=== PATIENT | female | born 1990 | race Caucasian/White ===

== ENCOUNTER 2023-06-18 11:08 | Inpatient (IN) | payer OTHER ==
[2023-06-18] VITALS (12 sets, daily range): BP systolic 88–142; BP diastolic 53–72
[~2023-06-18] VITALS: Ht 160 cm; Wt 111.4 kg
[2023-06-18] MEDS ORDERED: ASPI81CH33 PO (11:36)
[2023-06-18] MEDS ORDERED: PRENTAB9 PO (11:36)
[2023-06-18] MEDS ORDERED: HOME MED LIST COMPLETE! XX SCH (11:40)
[2023-06-18 12:21] LABS: HEMATOCRIT 35.9 % (36.0-47.0); HEMOGLOBIN 11.9 g/dl (12.0-15.5); MEAN CORPUSCULAR HEMOGLOBIN 27.3 pg (27.0-33.0); MEAN CORPUSCULAR HGB CONC 33.1 g/dl (32.0-36.5); MEAN CORPUSCULAR VOLUME 82.3 fl (80.0-96.0); PLATELET COUNT, AUTOMATED 296 10^3/uL (150-450); RED BLOOD COUNT 4.36 10^6/uL (4.00-5.40); WHITE BLOOD COUNT 9.7 10^3/uL (4.0-10.0)
[2023-06-18] MEDS ORDERED: TRANEXAMIC ACID INJection 1,000 MG in NS 100 ML IV PRN (14:05)
[2023-06-18] MEDS ORDERED: METHYLERGONOVINE MALEATE 0.2MG/ML 1ML VIAL IM PRN (14:05)
[2023-06-18] MEDS ORDERED: OXYTOCIN DRIP 30 UNITS in IV 1 EA IV PRN (14:05)
[2023-06-18] MEDS ORDERED: LIDOCAINE 1% MDV 20ML VIAL INFIL PRN (14:05)
[2023-06-18] MEDS: miSOPROStol 50MCG 1/2 TABLET PO SCH (14:32)
[2023-06-18] MEDS: LR 1,000 ML IV SCH (18:16)
[2023-06-19] VITALS (30 sets, daily range): BP systolic 86–153; BP diastolic 50–76; O2SAT 95–98
[2023-06-19] MEDS: PENICILLIN G POTASSIUM 5 MU IV 5 MU in D5W MINI-BAG PLUS 100 ML IV STA (00:11)
[2023-06-19] MEDS: OXYTOCIN DRIP 30 UNITS in IV 1 EA IV SCH (00:11)
[2023-06-19] MEDS ORDERED: LR 500 ML IV PRN (01:20)
[2023-06-19] MEDS ORDERED: ONDANSETRON 4MG 2ML VIAL IV PRN (01:20)
[2023-06-19] MEDS ORDERED: ePHEDrine SULFATE 25 MG/5 ML(5MG/ML) SYRINGE IVP PRN (01:20)
[2023-06-19] MEDS ORDERED: NALOXONE INJ 0.4MG/1ML VIAL IV PRN (01:20)
[2023-06-19] MEDS ORDERED: EPIDURAL/PCA KEYS XX PRN (01:20)
[2023-06-19] MEDS ORDERED: diphenhydrAMINE 50MG/ML VIAL IV PRN (01:20)
[2023-06-19] MEDS: FENTANYL/ROPIVACAINE/NACL BAG 100 ML EPIDURAL SCH (01:36)
[2023-06-19] MEDS: PEN G POT 3,000,000 UNIT/50 ML 3,000,000 UNIT in IV 1 EA IV SCH (04:07)
[2023-06-19] MEDS ORDERED: IBUPROFEN 600MG TAB PO PRN (07:40)
[2023-06-19] MEDS ORDERED: LR 1,000 ML IV SCH (07:40)
[2023-06-19] MEDS ORDERED: METOCLOPRAMIDE INJ 10MG/2ML VIAL IV PRN (07:40)
[2023-06-19] MEDS ORDERED: DOCUSATE SODIUM 100MG CAPSULE PO PRN (07:40)
[2023-06-19] MEDS ORDERED: MOM 30ML SUSPENSION UDC PO PRN (07:40)
[2023-06-19] MEDS ORDERED: RHOGAM 300MCG (1500IU) INJ IM SCH (07:40)
[2023-06-19] MEDS ORDERED: IBUPROFEN 800 MG TAB PO PRN (07:40)
[2023-06-19] MEDS ORDERED: OXYTOCIN DRIP 30 UNITS in IV 1 EA IV SCH (07:40)
[2023-06-19] MEDS ORDERED: DIBUCAINE 1% OINTMENT 30GM TOP PRN (07:40)
[2023-06-19] MEDS ORDERED: METHYLERGONOVINE MALEATE 0.2 MG TAB PO PRN (07:40)
[2023-06-19] MEDS ORDERED: ACETAMINOPHEN TAB 650MG DOSE (2X325MG) PO PRN (07:40)
[2023-06-19] MEDS ORDERED: PRENATAL VITAMINS CHEWABLE TABLET PO SCH (09:00)
[2023-06-19] MEDS: PRENATAL VITAMINS CHEWABLE TABLET PO SCH (09:00)
[2023-06-20 06:00] VITALS: BP 109/54; O2SAT 100
[2023-06-20] MEDS: ACETAMINOPHEN 500 MG TAB PO PRN (12:10)
[2023-06-20 18:00] VITALS: BP 116/68; O2SAT 95
[2023-06-21 05:54] VITALS: BP 125/83; O2SAT 98
[2023-06-21] MEDS: INFLUENZA QUADRIVALENT PF VACCINE 0.5ML SYRINGE IM.IMMUN ONE (08:57)
[2023-06-21] MEDS: MEASLES,MUMPS,RUBELLA VACCINE INJ (MMR-II) SC.IMMUN ONE (13:15)
== END 2023-06-21 14:20 | disposition home or self-care (01) | DRG 807 ==
LOC: M LDI 11:08 → M OBS 06-19 09:16
PROVIDERS: ADMIT Obstetrics & Gynecology; ATTEND Obstetrics & Gynecology
PROC: 3E0P7GC Introduction of Other Therapeutic Substance into Female Reproductive, Via Natural or Artificial Opening (ICD-10-PCS; 2023-06-18)
PROC: 10E0XZZ Delivery of Products of Conception, External Approach (ICD-10-PCS; principal; 2023-06-19)
DX: O35.8XX0 Maternal care for other (suspected) fetal abnormality and damage, not applicable or unspecified (principal); Z37.0 Single live birth; Z3A.39 39 weeks gestation of pregnancy; O69.81X0 Labor and delivery complicated by cord around neck, without compression, not applicable or unspecified; O99.824 Streptococcus B carrier state complicating childbirth; O77.0 Labor and delivery complicated by meconium in amniotic fluid

== ENCOUNTER 2024-05-21 04:27 | Inpatient (IN) | payer OTHER ==
[~2024-05-21] VITALS: Ht 157.5 cm; Wt 102.7 kg
[2024-05-21] VITALS (14 sets, daily range): BP systolic 108–163; BP diastolic 55–69; TEMP 97.1–98.1; O2SAT 96–99
[~2024-05-21 04:27] MED LIST: ASPI81CH33 PO; PRENTAB9 PO
[2024-05-21] MEDS ORDERED: HOME MED LIST COMPLETE! XX SCH (04:35)
[2024-05-21] MEDS ORDERED: OXYTOCIN INJ 10UNITS/ML 1ML VIAL IM PRN (05:15)
[2024-05-21] MEDS ORDERED: CARBOPROST TROMETHAMINE 250 MCG/ML AMP IM PRN (05:15)
[2024-05-21] MEDS ORDERED: LIDOCAINE 1% MDV 20ML VIAL INFIL PRN (05:15)
[2024-05-21] MEDS ORDERED: METHYLERGONOVINE MALEATE 0.2MG/ML 1ML VIAL IM PRN (05:15)
[2024-05-21] MEDS ORDERED: TRANEXAMIC ACID INJection 1,000 MG in NS 100 ML IV PRN (05:15)
[2024-05-21] MEDS ORDERED: OXYTOCIN DRIP 30 UNITS in IV 1 EA IV PRN (05:15)
[2024-05-21] MEDS ORDERED: MORPHINE 4 MG/ML 1ML VIAL As Ordered ONE (05:22)
[2024-05-21] MEDS: MORPHINE 10 MG/ML 1ML VIAL IV ONE (05:34)
[2024-05-21 05:54] LABS: HEMATOCRIT 28.5 % (36.0-47.0); HEMOGLOBIN 9.3 g/dl (12.0-15.5); MEAN CORPUSCULAR HEMOGLOBIN 24.9 pg (27.0-33.0); MEAN CORPUSCULAR HGB CONC 32.6 g/dl (32.0-36.5); MEAN CORPUSCULAR VOLUME 76.2 fl (80.0-96.0); PLATELET COUNT, AUTOMATED 239 10^3/uL (150-450); RED BLOOD COUNT 3.74 10^6/uL (4.00-5.40); WHITE BLOOD COUNT 14.8 10^3/uL (4.0-10.0)
[2024-05-21] MEDS ORDERED: propofoL 200 MG/20 ML VIAL As Ordered ONE (06:29)
[2024-05-21] MEDS ORDERED: LIDOCAINE 2% 100MG/5ML SDV (FOR ANES.) As Ordered ONE (06:29)
[2024-05-21] MEDS ORDERED: ONDANSETRON 4MG 2ML VIAL As Ordered ONE (06:33)
[2024-05-21] MEDS ORDERED: ROCURONIUM BROMIDE 50MG/5ML VIAL As Ordered ONE (06:34)
[2024-05-21] MEDS ORDERED: KETOROLAC 60MG 2ML VIAL As Ordered ONE (06:34)
[2024-05-21] MEDS ORDERED: SUGAMMADEX SODIUM 500 MG/5 ML VIAL (BRIDION) As Ordered ONE (06:36)
[2024-05-21] MEDS ORDERED: fentaNYL 100 MCG/2 ML INJECTION As Ordered ONE (06:38)
[2024-05-21] MEDS ORDERED: MIDAZOLAM INJ 2MG/2ML VIAL As Ordered ONE (06:38)
[2024-05-21] MEDS: OXYTOCIN INJ 10UNITS/ML 1ML VIAL As Ordered ONE (06:57)
[2024-05-21] MEDS: OXYTOCIN 30UNITS IN 0.9% NaCl 500ML IV BAG As Ordered ONE (06:57)
[2024-05-21] MEDS: METHYLERGONOVINE MALEATE 0.2MG/ML 1ML VIAL As Ordered ONE (06:58)
[2024-05-21 07:03] LABS: HIV 1&2 SCREEN NEGATIVE (NEGATIVE)
[2024-05-21] MEDS ORDERED: fentaNYL 100 MCG/2 ML INJECTION IV PRN (07:15)
[2024-05-21] MEDS ORDERED: oxyCODONE 5MG TAB PO PRN (07:15)
[2024-05-21] MEDS ORDERED: HYDROMORPHONE HCL 0.5 MG/ 0.5 ML SYRINGE IV PRN (07:15)
[2024-05-21] MEDS ORDERED: ONDANSETRON 4MG 2ML VIAL IV PRN (07:15)
[2024-05-21] MEDS: NS (Normal Saline) 0.9% 1,000 ML IV SCH (08:45)
[2024-05-21] MEDS ORDERED: IBUPROFEN 800 MG TAB PO PRN (09:35)
[2024-05-21] MEDS ORDERED: ACETAMINOPHEN 325 MG TAB PO PRN (09:35)
[2024-05-21] MEDS ORDERED: RHOGAM 300MCG (1500IU) INJ IM SCH (09:35)
[2024-05-21] MEDS ORDERED: ACETAMINOPHEN 500 MG TAB PO PRN (09:35)
[2024-05-21] MEDS ORDERED: DIBUCAINE 1% OINTMENT 30GM TOP PRN (09:35)
[2024-05-21] MEDS ORDERED: METHYLERGONOVINE MALEATE 0.2 MG TAB PO PRN (09:35)
[2024-05-21] MEDS ORDERED: DOCUSATE SODIUM 100MG CAPSULE PO PRN (09:35)
[2024-05-21] MEDS ORDERED: IBUPROFEN 600MG TAB PO PRN (09:35)
[2024-05-21 16:04] LABS: HEMATOCRIT 27.1 % (36.0-47.0); HEMOGLOBIN 8.7 g/dl (12.0-15.5); MEAN CORPUSCULAR HEMOGLOBIN 25.3 pg (27.0-33.0); MEAN CORPUSCULAR HGB CONC 32.1 g/dl (32.0-36.5); MEAN CORPUSCULAR VOLUME 78.8 fl (80.0-96.0); PLATELET COUNT, AUTOMATED 211 10^3/uL (150-450); RED BLOOD COUNT 3.44 10^6/uL (4.00-5.40); WHITE BLOOD COUNT 16.8 10^3/uL (4.0-10.0)
[2024-05-22 06:00] VITALS: BP 117/66; O2SAT 98
[2024-05-22] MEDS: PRENATAL VITAMINS CHEWABLE TABLET PO SCH (09:07)
[2024-05-23] MEDS ORDERED: MEASLES,MUMPS,RUBELLA VACCINE INJ (MMR-II) SC.IMMUN ONE (09:00)
== END 2024-05-22 16:00 | disposition home or self-care (01) | DRG 806 ==
LOC: M LDO 04:27 → M LDI 04:42 → M OBS 09:09
PROVIDERS: ADMIT Advanced Practice Midwife; ATTEND Advanced Practice Midwife
PROC: 10E0XZZ Delivery of Products of Conception, External Approach (ICD-10-PCS; 2024-05-21)
PROC: 10D17Z9 Manual Extraction of Products of Conception, Retained, Via Natural or Artificial Opening (ICD-10-PCS; principal; 2024-05-21 06:09)
DX: O77.0 Labor and delivery complicated by meconium in amniotic fluid (principal); Z37.0 Single live birth; O72.1 Other immediate postpartum hemorrhage; O73.0 Retained placenta without hemorrhage; Z3A.00 Weeks of gestation of pregnancy not specified